=== PATIENT | male | born 1995 | race Caucasian/White ===

== ENCOUNTER 2020-06-10 09:26 | Emergency (ER) | payer OTHER, SELFPAY ==
[2020-06-10 09:42] VITALS: BP 152/95; PULSE 94; RESP 18; TEMP 36.8; O2SAT 98; BMI 27.1
--- NOTE | 2020-06-10 10:00 | ED_ITS ---
HPI - Headache General Chief Complaint: Headache Stated Complaint: headache/nausea Time Seen by Provider: 06/10/20 09:33 Source: patient and EMS Mode of arrival: EMS Limitations: no limitations History of Present Illness HPI Narrative: [facility] of [facility] headache since last night similar to his migraines in the past headache is mostly localized in the frontal part little nauseated, no fever no history of any injury MD elicited complaint: headache Onset (ago): hour(s) (Twelve) Onset description: suddenly Location: frontal Severity: moderate Quality & Timing: constant and similar to previous headaches Exacerbating factors: light and noise Relieving factors: nothing Context: occurred at rest Associated symptoms: nausea Related Data Previous Rx's Medication Instructions Recorded zffyxsjknj-whufyoojgggyf-vmpc 1 cap PO Q6H PRN #20 cap 06/10/20 [Fioricet] ondansetron 4 mg PO Q6-8H PRN #20 tab 06/10/20 sumatriptan succinate [Imitrex] 50 mg PO Q2H PRN #10 tab 06/10/20 Allergies Allergy/AdvReac Type Severity Reaction Status Date / Time No Known Allergies Allergy Verified 06/10/20 09:33 Review of Systems Review of Systems: Constitutional : No Weight loss, No Fever, No Chills ENT/Mouth : No sore throat, No Rhinorrhea Eyes: No Eye Pain, No Swelling Cardiovascular : No Chest Pain, no palpitations Respiratory : No Cough, No Sputum, no shortness of breath Gastrointestinal : + Nausea, No Vomiting, No Diarrhea, No abdominal Pain, no black stools Genitourinary : No Dysuria, No Urinary Frequency Musculoskeletal : No joint pain, No Myalgias, No Joint Swelling Skin : No Skin Lesions, No rash Neuro : No Weakness, No Numbness, No Dizziness, N+Headache Psych : No Anxiety/Panic, No Depression Heme/Lymph: No Bruising, No Lymphadenopathy Endocrine : No Polyuria, No Polydipsia All other systems reviewed and are negative [facility] Social History Social History Alcohol intake: unknown Smoking Status: Unknown if ever smoked Use of substances other than those prescribed or required for medical reasons: Yes Substance Use Type: Heroin Advance Directives: No Advance Directives Information Provided: No Physical Exam Vital Signs: Vital Signs: Last Vital Signs Temp 98.2 F 06/10/20 09:42 Pulse 94 06/10/20 09:42 Resp 18 06/10/20 09:42 BP 152/95 H 06/10/20 09:42 Pulse Ox 98 06/10/20 09:42 Body Mass Index 27.1 Appearance: Alert. Oriented X3. No acute distress. Eyes: Pupils equal, round and reactive to light. ENT: Pharynx normal. Neck: Normal inspection. Neck supple. No temporal artery tenderness CVS: Normal heart rate and rhythm. Pulses normal. Respiratory: No respiratory distress. Breath sounds normal. Abdomen: Soft and nontender. Bowel sounds are present, no mass palpable, no CVA tenderness Skin: Skin warm and dry. Normal skin color. Normal skin turgor. Extremities: No lower extremity edema. Neuro: Oriented X 3. No motor deficit. No sensory deficit. Course Course Course Narrative: Patient feeling much better after Imitrex and Fioricet still has slight headache will give him Toradol IM patient will go back to [place] with his family Discharge Plan Discharge Clinical Impression: Migraine Qualifiers: Migraine type: without aura Status migrainosus presence: without status migrainosus Intractability: not intractable Qualified Code(s): G43.009 - Migraine without aura, not intractable, without status migrainosus Patient Disposition: Home, Self-Care Instructions: Migraine Headache (ED) Additional Instructions: Rest at home medication as advised Prescriptions: New sumatriptan succinate [Imitrex] 50 mg tablet 50 mg PO Q2H PRN (Reason: migraine headache) Qty: 10 RF: 0 mmijbdekut-mfyutktdcimwn-dwci [Fioricet] 50-300-40 mg capsule 1 cap PO Q6H PRN (Reason: pain) Qty: 20 RF: 0 ondansetron 4 mg tablet,disintegrating 4 mg PO Q6-8H PRN (Reason: nausea and vomiting) Qty: 20 RF: 0 Interventions: ED Discharge Assessment Last Done: 06/10/20 11:53 Discharge Date/Time: 06/10/20 11:55
[2020-06-10] MEDS: Butalb/Acetamin/Caff 50/325/40 TABLET 1 TAB PO (10:13)
[2020-06-10] MEDS: Ketorolac Tromethamine 60 MG/2 ML VIAL IM (11:22)
== END 2020-06-10 11:55 | disposition home or self-care (01) ==
PROVIDERS: Emergency Provider Internal Medicine
DX: G43.009 Migraine without aura, not intractable, without status migrainosus (principal); F11.90 Opioid use, unspecified, uncomplicated; Z79.899 Other long term (current) drug therapy
CPT/HCPCS: 96372; 99284; J1885; J3030

== ENCOUNTER 2021-09-18 11:28 | Emergency (ER) | payer OTHER, SELFPAY ==
--- NOTE | ~2021-09-18 | XR_ITS ---
EXAMINATION: XR FOOT, LEFT CLINICAL INFORMATION: Left foot pain status post fall. COMPARISON: None TECHNIQUE: AP, lateral, and oblique views of the left foot. An indicator arrow points to the fifth metatarsal. FINDINGS: There is no acute fracture or dislocation. The tarsal bones are normally aligned. The joint spaces are unremarkable. The soft tissues are unremarkable. XR/XR foot LT min 3V IMPRESSION: Unremarkable left foot. Specifically, the fifth metatarsal appears intact.
[2021-09-18 12:01] VITALS: BP 145/80; BP 158/72; PULSE 66; PULSE 76; RESP 18; TEMP 36.6; O2SAT 98; BMI 26.2
--- NOTE | 2021-09-18 12:25 | ED.LOWEXIN ---
HPI - Extremity Injury (Lower) General Chief Complaint: Extremity Injury, Lower Stated Complaint: FALL DOWN STAIRS,L FOOT PAIN/SWELLING Time Seen by Provider: 09/18/21 12:19 Source: patient Mode of arrival: ambulatory Limitations: no limitations History of Present Illness HPI Narrative: Patient comes in the emergency room from [facility]. Patient was walking down the stairs today, patient missed a step, states that his foot bended upwards. Patient complaining of pain in the dorsal aspect of the foot. Patient states that approximately 6 years ago he had metatarsal crush injuries from a branch falling and his foot. Patient denies any other injury, patient is not on blood thinners. Related Data Previous Rx's Medication Instructions Recorded ecxusodijc-wpqzxwssisjuq-qargvgke 1 cap PO Q6H PRN #20 cap 06/10/20 50 mg-300 mg-40 mg capsule (Fioricet) ondansetron 4 mg disintegrating 4 mg PO Q6-8H PRN #20 tab 06/10/20 tablet sumatriptan succinate 50 mg tablet 50 mg PO Q2H PRN #10 tab 06/10/20 (Imitrex) ibuprofen 600 mg tablet 600 mg PO TID PRN #14 tab 09/18/21 Allergies Allergy/AdvReac Type Severity Reaction Status Date / Time No Known Allergies Allergy Verified 09/18/21 12:01 Review of Systems Review of Systems: Constitutional : No Weight loss, No Fever, No Chills, No Night Sweats, No Fatigue, No Malaise ENT/Mouth : No Hearing loss, No Ear Pain, No Nasal Congestion, No Sinus Pain, No Hoarseness, No sore throat, No Rhinorrhea, No Swallowing Difficulty Eyes: No Eye Pain, No Swelling, No Redness, No Foreign Body, No Discharge, No Vision Changes Cardiovascular : No Chest Pain, No SOB, No Dyspnea on Exertion, No Orthopnea, No Edema, No Palpitations Respiratory : No Cough, No Sputum, No Wheezing, No Smoke Exposure, No Dyspnea Gastrointestinal : No Nausea, No Vomiting, No Diarrhea, No Constipation, No abdominal Pain, No Hematochezia, No Melena Genitourinary : no irregular bleeding, No Dysuria, No Urinary Frequency, No Hematuria, No Urinary Incontinence, No Urgency, No Flank Pain, No Urinary Flow Changes, No Hesitancy Musculoskeletal : Complaining left foot pain on the dorsal aspect, no ankle pain. Skin : No Skin Lesions, No rash Neuro : No Weakness, No Numbness, No Paresthesias, No Loss of Consciousness, No Dizziness, No Headache Psych : No Anxiety/Panic, No Depression, No SI/HI/AH/VH, No Social Issues, Heme/Lymph: No Bruising, No Bleeding,No Lymphadenopathy Endocrine : No Polyuria, No Polydipsia, No Temperature Intolerance [facility] Social History Social History Alcohol intake: unknown Substance Use Type: Heroin Advance Directives: Yes Advance Directives Information Provided: Yes Advance Directives on File: No Physical Exam Vital Signs: Vital Signs: Last Vital Signs Temp 97.9 F 09/18/21 12:01 Pulse 66 09/18/21 12:01 Resp 18 09/18/21 12:01 BP 145/80 H 09/18/21 12:01 Pulse Ox 98 09/18/21 12:01 BMI result Body Mass Index 26.2 Const: Other: Appearance: Alert. Oriented X3. No acute distress. Eyes: Pupils equal, round and reactive to light. ENT: Pharynx normal. Neck: Normal inspection. Neck supple. No lymph nodes noted. No crepitus CVS: Normal heart rate and rhythm. Pulses normal. Normal S1 and S2 Respiratory: No respiratory distress. Breath sounds normal. No Wheezing. No rales Abdomen: Soft and nontender. No rigidity. No distention. Skin: Skin warm and dry. Normal skin color. Normal skin turgor. Extremities: No pain to palpation over the lateral or medial malleolus. Patient able to flex and extend the ankle. Pain to palpation over the metatarsals on the left foot, mild swelling Neuro: Oriented X 3. No motor deficit. No sensory deficit. Moving all extremities. No slurred speech. CN 2 through 12 grossly intact Psych: calm, cooperative, normal affect Course Course Course Narrative: Ibuprofen offered to the patient, patient accepted but declined ice. I discussed the x-ray with the patient, no acute findings. Patient likely having contusion. MDM - Extremity Injury (Lower) Imaging Data Foot x-ray: Radiologist's impression: FINDINGS: There is no acute fracture or dislocation. The tarsal bones are normally aligned. The joint spaces are unremarkable. The soft tissues are unremarkable.? XR/XR foot LT min 3V IMPRESSION: Unremarkable left foot. Specifically, the fifth metatarsal appears intact. Discharge Plan Discharge Clinical Impression: Contusion of foot Patient Disposition: Home, Self-Care Instructions: Foot Contusion (ED) Additional Instructions: Please follow-up with your primary care physician tomorrow. If you have any worsening or new symptoms, please return to the emergency room or call 911 Prescriptions: New ibuprofen 600 mg tablet 600 mg PO TID PRN (Reason: pain) Qty: 14 0RF No Action sumatriptan succinate [Imitrex] 50 mg tablet 50 mg PO Q2H PRN (Reason: migraine headache) Qty: 10 0RF Rx Instructions: do not exceed 2 doses per 24 hrs hxyvnfubnz-ufpodstpqyfce-pmzy [Fioricet] 50-300-40 mg capsule 1 cap PO Q6H PRN (Reason: pain) Qty: 20 0RF ondansetron 4 mg tablet,disintegrating 4 mg PO Q6-8H PRN (Reason: nausea and vomiting) Qty: 20 0RF
[2021-09-18] MEDS: Ibuprofen 600 MG TABLET PO (13:03)
== END 2021-09-18 13:46 | disposition home or self-care (01) ==
PROVIDERS: Emergency Provider Emergency Medicine
DX: S90.32XA Contusion of left foot, initial encounter (principal); W10.9XXA Fall (on) (from) unspecified stairs and steps, initial encounter; Y93.9 Activity, unspecified; Y92.9 Unspecified place or not applicable; Y99.9 Unspecified external cause status; Z79.899 Other long term (current) drug therapy
CPT/HCPCS: 73630; 99283; 99284

== ENCOUNTER 2021-12-12 21:41 | Emergency (ER) | payer OTHER, SELFPAY ==
[2021-12-12 21:48] VITALS: BP 140/82; PULSE 95; O2SAT 98
[2021-12-13 04:22] VITALS: BMI 25.0
--- NOTE | 2021-12-13 07:11 | ECG_ITS ---
Test Reason : PALPITATIONS Blood Pressure : / mmHG Vent. Rate : 065 BPM Atrial Rate : 065 BPM P-R Int : 114 ms QRS Dur : 100 ms QT Int : 490 ms P-R-T Axes : -14 046 034 degrees QTc Int : 509 ms Normal sinus rhythm Prolonged QT Abnormal ECG No previous ECGs available Referred By: Christy Ontiveros Electronically Signed By:KIKI FRANK
--- NOTE | 2021-12-13 07:31 | ED.GENADULT ---
HPI - General Adult General Chief complaint: General Medical Stated complaint: Anxiety Time Seen by Provider: 12/13/21 07:11 Source: patient Mode of arrival: EMS History of Present Illness HPI narrative: 26-year-old male who presents via EMS with multiple complaints such as bilateral foot pain from excessive walking, he states he has been out in the heat and denies any suicidal or homicidal ideations and also describes having a headache and is requesting detox. He otherwise denies any shortness of breath does have some complaints of chest pain and is currently on the methadone program. Related Data Previous Rx's Medication Instructions Recorded ukypbxnzyj-ffjqshghxwpwv-znczvfmi 1 cap PO Q6H PRN pain #20 caps 06/10/20 50 mg-300 mg-40 mg capsule (Fioricet) ondansetron 4 mg disintegrating 4 mg PO Q6-8H PRN nausea and 06/10/20 tablet vomiting #20 tabs sumatriptan succinate 50 mg tablet 50 mg PO Q2H PRN migraine headache 06/10/20 (Imitrex) #10 tabs ibuprofen 600 mg tablet 600 mg PO TID PRN pain #14 tabs 09/18/21 Allergies Allergy/AdvReac Type Severity Reaction Status Date / Time ibuprofen AdvReac Unknown Verified 10/08/21 10:51 mite-Dermatophagoides AdvReac Sneezing Verified 10/08/21 10:51 michele del castillo Review of Systems Review of Systems: Pertinent positives and negatives as stated in HPI 10 point review of systems is otherwise negative. PMFSH Past Medical History Source: nursing notes reviewed Surgical History History of nephrectomy Social History Social History Alcohol intake: unknown Substance Use Type: Heroin Advance Directives: No Advance Directives Information Provided: Yes Physical Exam ED Vital Signs: BMI result Body Mass Index 25.0 VITAL SIGNS: Reviewed. GENERAL: Well developed, well nourished, in no acute distress. HEAD: Normocephalic/atraumatic EYES: PERRLA, EOMI EARS: Ext canals without abnormality, TMs non-bulging and non-erythematous NOSE: Nares patent bilateral OROPHARYNX: no oral lesions noted, posterior pharynx clear LUNGS: Normal breath sounds. No adventitious sounds or accessory muscle use. CARDIOVASCULAR: Regular rate and rhythm without noted murmurs ABDOMEN: Soft, non-tender, non-distended with bowel sounds. MUSCULOSKELETAL: No tenderness, deformities, or effusions noted on gross inspection. EXTREMITIES: No cyanosis, clubbing or edema; BILATERAL FEET: There is noted blister formation to the mid plantar MTP area without evidence of infection, feet are otherwise warm with good palpable pulses that are symmetric. SKIN: Inspection of the skin reveals no rashes NEUROLOGIC: Alert and oriented x 4. Strength and sensation to light touch were grossly intact x 4. Course Course Course Narrative: 26-year-old male with history and clinical presentation consistent with blisters from walking to bilateral feet that are not infected, patient given combination analgesics for his headache and a care team consult was placed for detox. Patient eloped Medical Decision Making ECG Data Attestation: I personally reviewed and interpreted this ECG as follows: Prior ECG tracings: not available for review Interpretation: NSR, HR-65, no STEMI, prolonged QT likely secondary to methadone Discharge Plan Discharge Clinical Impression: Substance use disorder, Blister of foot Patient Disposition: Elopement Prescriptions: No Action sumatriptan succinate [Imitrex] 50 mg tablet 50 mg PO Q2H PRN (Reason: migraine headache) Qty: 10 0RF Rx Instructions: do not exceed 2 doses per 24 hrs mhpynrdtxf-kovakyjrvwjcq-ummr [Fioricet] 50-300-40 mg capsule 1 cap PO Q6H PRN (Reason: pain) Qty: 20 0RF ondansetron 4 mg tablet,disintegrating 4 mg PO Q6-8H PRN (Reason: nausea and vomiting) Qty: 20 0RF ibuprofen 600 mg tablet 600 mg PO TID PRN (Reason: pain) Qty: 14 0RF Interventions: ED Discharge Assessment Last Done: 12/13/21 10:20 Discharge Date/Time: 12/13/21 10:21
[2021-12-13] MEDS: Acetaminophen 325 MG TABLET 975 MG PO (07:44)
== END 2021-12-13 10:21 | disposition left against medical advice (07) ==
PROVIDERS: Emergency Provider Student in an Organized Health Care Education/Training Program
DX: F41.1 Generalized anxiety disorder (principal); M79.672 Pain in left foot; M79.671 Pain in right foot; R00.2 Palpitations; R23.8 Other skin changes; F11.10 Opioid abuse, uncomplicated; Z79.899 Other long term (current) drug therapy
CPT/HCPCS: 93005; 99284

== ENCOUNTER 2021-12-28 19:29 | Emergency (ER) | payer OTHER, SELFPAY | END 2021-12-28 21:46 | disposition left against medical advice (07) | PROVIDERS: Emergency Provider Emergency Medicine | DX: G43.909 Migraine, unspecified, not intractable, without status migrainosus (principal) ==